=== PATIENT | female | born 1950 | race Caucasian/White ===

== ENCOUNTER 2019-11-01 12:44 | Observation (INO) ==
--- NOTE | 2019-11-01 13:27 | Emergency Department Note ---
Abdominal Pain HPI - General Chief Complaint: Abdominal Pain Stated Complaint: abdominal pain after colonoscopy Time Seen by Provider: 11/01/19 12:52 Source: patient Mode of arrival: ambulatory Limitations: no limitations - History of Present Illness HPI Narrative: 69-year-old female patient presents emergency department chief complaint of worsening abdominal pain, bloating, nausea. Patient tells she underwent a colonoscopy yesterday by Dr. Bernal. Since that time she has had worsening symptoms as mentioned. She admits to having several colonoscopies in the past but "nothing is made me feel like this". She is passed minimal flatus. She has not had a bowel movement in last 24 hours. She denies vomiting. She denies systemic fever, sweats, chills. She denies shortness of breath. She denies retrosternal chest pain or palpitations. She describes the pain as a sharp, cramping pain greatest at the right lower quadrant. She denies dysuria or hematuria. However, it is "a little hard to urinate". She denies focal weakness. Patient past my history is consistent for the following: Hypertension, dyslipidemia, and iron deficiency anemia. - Related Data Home Medications Medication Instructions Recorded Confirmed Atorvastatin [Lipitor] 20 mg PO HS 10/31/19 10/31/19 Cyanocobalamin (Vitamin B-12) 1,000 mcg PO DAILY 10/31/19 10/31/19 [Vitamin B-12] Losartan [Cozaar] 50 mg PO ONCE 10/31/19 10/31/19 Allergies Allergy/AdvReac Type Severity Reaction Status Date / Time No Known Drug Allergies Allergy Verified 11/01/19 12:44 Review of Systems All systems ED: reviewed and negative except as stated. Abdominal Pain PMH - Social History Smoking status: Former smoker Physical Exam Limitations: no limitations General appearance: alert, anxious, grimacing, in distress, other (Well-develope d, well-nourished, obese 69-year-old female patient laying supine on the emergency room gurney in obvious discomfort. She is cradling her abdomen during the interview.) Head: atraumatic, normocephalic Eye: Present: normal appearance, PERRL, EOMI. Absent: scleral icterus, conjunctival injection ENT: Present: normal oropharynx, mucous membranes moist Neck: Present: trachea midline. Absent: lymphadenopathy, thyromegaly Chest: Present: symmetric chest wall rise Respiratory: Present: normal lung sounds bilaterally. Absent: respiratory distress, rales/crackles, wheezes, stridor, accessory muscle use, prolonged expiratory phase Cardiovascular: Present: regular rate, normal rhythm. Absent: systolic murmur, diastolic murmur Abdominal: Present: distention, tenderness, guarding (During right lower quadrant palpation), rigidity, diminished bowel sounds. Absent: soft, rebound, organomegaly, ascites, mass Abdominal tenderness: Present: diffuse, severe Extremities: Present: normal inspection, full ROM Back: Present: normal inspection, full ROM Neurological: Present: alert, oriented X3 Psychiatric: Present: normal affect, anxious Skin: Present: warm, dry, normal color Course Course Narrative: Patient was brought into emergency department and a history and physical exam was performed. Two-view abdominal x-ray series was obtained and reviewed. Laboratory studies were drawn. Afterward, saline lock was established patient was given Dilaudid 0.5 mg IVP. Normal saline was started 1000 L bolus. Upon reevaluation patient had improved slightly with the Dilaudid treatment. However, within 30 minutes or abdominal pain worsened. A review of her laboratory studies show the following: See WBC 14.1, RBC 5.3, hemoglobin 14.3, hematocrit 43.5, platelets 225. CMP glucose 111, all others normal limits. Abdominal x-ray showing normal abdomen. After reviewing the data I discussed these findings with patient. During that time she is complaining of worsening abdominal pain and distention. Due to her worsening symptoms and elevated leukocytes a abdominal/pelvic CT scan with contrast was ordered and reviewed. CT scan with contrast of the abdomen/pelvis showing simple appendicitis. Radiologist does mention that the appendix is located in the lateral pericecal region. There was mention of sigmoid diverticulosis but no diverticulitis. After reviewing the additional data I reached out to our general surgeon (Dr. Parra) and discussed the case with him. With her developing appendicitis it was thought best that she be admitted to the hospital under the surgical service and Dr. Parra will follow her in the morning. Dr. Parra did request that I place some holding orders. Patient has remained stable throughout her entire time the emergency department and is going to be admitted under observation to our surgical service under the care of Dr. Parra. After the holding orders all further treatment decisions, modalities, and ultimate patient disposition will be carried out by Dr. Parra. Vital Signs Temperature 97.5 F 11/01/19 12:44 Pulse Rate 86 11/01/19 12:44 Respiratory Rate 20 11/01/19 12:44 Blood Pressure 137/73 11/01/19 12:44 Pulse Oximetry (%) 99 11/01/19 12:44 Temperature 97.5 F 11/01/19 12:44 Pulse Rate 73 11/01/19 16:49 Respiratory Rate 16 11/01/19 16:49 Blood Pressure 130/60 11/01/19 16:49 Pulse Oximetry (%) 95 11/01/19 16:49 Abdominal Pain - Lab Data Lab results reviewed: Yes I reviewed the patient's lab results. Result diagrams: 11/01/19 13:10 11/01/19 13:10 Lab Results 11/01/19 11/01/19 Range/Units 13:10 13:10 WBC 14.1 H (4.50-11.00) K/mcL RBC 5.30 (3.59-5.38) M/mcL Hgb 14.3 (11.2-15.7) g/dL Hct 43.5 (34.1-44.9) % MCV 82.1 (80.0-100.0) fL MCH 27.0 (26.0-34.0) pg MCHC 32.9 (31.0-36.0) g/dL RDW TNP Plt Count 225 (140-440) K/mcL MPV 8.8 (7.4-10.4) fL Gran % 81.7 H (38.0-78.0) % Lymph % (Auto) 11.1 L (15.5-49.0) % Nash % (Auto) 6.6 (1.0-12.0) % Eos % (Auto) 0.1 (0.0-7.0) % Baso % (Auto) 0.5 (0.0-2.0) % Gran # 11.47 H (1.80-8.00) K/mcL Lymph # (Auto) 1.56 (1.50-4.80) K/mcL Nash # (Auto) 0.93 H (0.10-0.90) K/mcL Eos # (Auto) 0.02 (0.00-0.70) K/mcL Baso # (Auto) 0.07 (0.00-0.30) K/mcL Sodium 133 (133-145) mmol/L Potassium 4.1 (3.3-5.1) mmol/L Chloride 96 (96-108) mmol/L Carbon Dioxide 24 (22-30) mmol/L Anion Gap 13.0 (8-16) BUN 8 (8-23) mg/dl Creatinine 1.0 (0.6-1.1) mg/dl GFR Calculation 57 Glucose 111 H (70-105) mg/dL Calcium 10.2 (8.6-10.4) mg/dl Total Bilirubin 0.5 (0.0-1.0) mg/dL AST 15 (0-37) U/l ALT 17 (0-40) U/l Alkaline Phosphatase 74 (39-117) U/L Total Protein 7.4 (5.9-8.4) gm/dL Albumin 4.6 (3.2-5.2) gm/dL Globulin 2.8 (2.2-3.7) gm/dL Albumin/Globulin Ratio 1.6 (1.0-2.3) - Radiology Data Radiology results reviewed: Yes I reviewed the patient's radiology results. Ordering Physician: Erick Jacques PA-C Date of Service: 11/01/19 Procedure(s): XR abdomen 2V Accession Number(s): [id number] CLINICAL INFORMATION: 69 y/o F. lower Abd pain, nausea today. COMPARISON: None. FINDINGS: The stool gas pattern is unremarkable. There is no free air, soft tissue mass, organomegaly or pathologic calcification. IMPRESSION: Normal abdomen Ordering Physician: Erick Jacques PA-C Date of Service: 11/01/19 Procedure(s): CT abdomen pelvis w con Accession Number(s): [id number] CLINICAL INFORMATION: Abdominal pain following colonoscopy. Elevated white blood cell count COMPARISON: None. TECHNIQUE: Following enteric contrast, 80 cc of Isovue-370 were injected intravenously, and 60 seconds later, 0.625 mm helical slices were obtained from the mid heart through the subtrochanteric regions. Following reconstruction, 2.5 mm sagittal, coronal and axial reformatted images were processed and reviewed at bone, lung and soft tissue windows. Five minutes later, 0.625 mm helical slices were obtained from the mid heart through the kidneys and viewed at soft tissue windows.The exam was performed using radiation dose optimization techniques including, but not limited to, automated exposure control, adjustment of the mA and/or kV according to patient size and use of iterative reconstruction technique. FINDINGS: Lung bases show no abnormality. There are no effusions. The visualized heart is borderline enlarged with moderately heavy calcification in the mitral annulus. Abdominal images show minimal fatty change of the liver, but no focal hepatic lesion. The gallbladder and bile ducts are normal: CBD is 5 mm. The pancreas, both kidneys, adrenal glands, spleen and aorta including aortic branches are normal in size configuration and attenuation without focal lesion. There is no free air, free fluid or adenopathy Pelvic images show urinary bladder to be unremarkable. Anteflex normal-appearing postmenopausal uterus measures 6 x 3 cm. The region of the ovaries are normal. Few sigmoid diverticula appreciated, but no evidence of diverticulitis. The remaining colon, small bowel and stomach are normal. The appendix is located in the lateral pericecal region and shows mild wall thickening and enhancement. There is also inflammation in the periappendiceal fat. No appendicolith. Findings are compatible with simple appendicitis. Bone windows show chronic bilateral L5-S1 spondylolysis with grade 1 spondylolisthesis resulting in severe bilateral IV foraminal narrowing. There is impingement of the exiting L5 nerve roots. IMPRESSION: 1. Simple appendicitis. The appendix is located in the lateral pericecal region. 2. Sigmoid diverticulosis - no evidence of diverticulitis. 3. Bilateral chronic L5-S1 spondylolysis with grade 1 spondylolisthesis and broad disc protrusion resulting in severe IV foraminal narrowing impinging the exiting L5 nerve roots. Interpreted and Authenticated by: Sloan Chang 11/01/19 Disposition Pt seen by UNCLAIMED PROPERTY MANAGER/PA only: Yes Clinical Impression: Acute appendicitis Qualifiers: Acute appendicitis type: with localized peritonitis Appendicitis gangrene presence: without gangrene Appendicitis perforation presence: without perforation Appendicitis abscess presence: without abscess Qualified Code(s): K35.30 - Acute appendicitis with localized peritonitis, without perforation or gangrene Disposition: Xfer As Outpt/Obs ([facility]) Condition: Good Additional Instructions: Patient is going to be admitted to observation our facility under the care of the surgical service (Dr. Parra). I will be placing holding orders and then all further treatment decisions, modalities, and ultimate patient disposition will be carried out by Dr. Parra. Referrals: Gabriella Pichardo MD [Primary Care Provider] - Andrea Parra MD [Physician] - Time of Disposition: 19:09
[2019-11-01] MEDS ORDERED: 0.9 % SODIUM CHLORIDE 1,000 ML IV ONE (13:30)
[2019-11-01] MEDS: HYDROmorphone 2 MG/ML VIAL IV PRN ×4 (13:45→21:12)
[2019-11-01 14:15] LABS: ALT/SGPT 17 U/l (0-40); AST/SGOT 15 U/l (0-37); Albumin 4.6 gm/dL (3.2-5.2); Albumin/Globulin Ratio 1.6 (1.0-2.3); Alkaline Phosphatase 74 U/L (39-117); Bilirubin,Total 0.5 mg/dL (0.0-1.0); Blood Urea Nitrogen 8 mg/dl (8-23); Calcium 10.2 mg/dl (8.6-10.4); Carbon Dioxide 24 mmol/L (22-30); Chloride 96 mmol/L (96-108); Globulin 2.8 gm/dL (2.2-3.7); Glomerular Filtration Rate 57; Glucose 111 mg/dL (70-105)
[2019-11-01 14:30] LABS: Basophils # (Auto) 0.07 K/mcL (0.00-0.30); Basophils % (Auto) 0.5 % (0.0-2.0); Eosinophils # (Auto) 0.02 K/mcL (0.00-0.70); Eosinophils % (Auto) 0.1 % (0.0-7.0); Granulocytes % (Auto) 81.7 % (38.0-78.0); Hematocrit 43.5 % (34.1-44.9); Hemoglobin 14.3 g/dL (11.2-15.7); Lymphocytes # (Auto) 1.56 K/mcL (1.50-4.80); Lymphocytes % (Auto) 11.1 % (15.5-49.0); Mean Cell Volume 82.1 fL (80.0-100.0); Mean Corpuscular HGB Conc 32.9 g/dL (31.0-36.0); Mean Platelet Volume 8.8 fL (7.4-10.4); Monocytes # (Auto) 0.93 K/mcL (0.10-0.90); Monocytes % (Auto) 6.6 % (1.0-12.0); Platelet Count 225 K/mcL (140-440); WBC 14.1 K/mcL (4.50-11.00)
[2019-11-01] MEDS ORDERED: ONDANSETRON 4 MG/2 ML VIAL IV ONE (16:02)
--- NOTE | 2019-11-01 17:56 | Cat Scan Report ---
CLINICAL INFORMATION: Abdominal pain following colonoscopy. Elevated white blood cell count COMPARISON: None. TECHNIQUE: Following enteric contrast, 80 cc of Isovue-370 were injected intravenously, and 60 seconds later, 0.625 mm helical slices were obtained from the mid heart through the subtrochanteric regions. Following reconstruction, 2.5 mm sagittal, coronal and axial reformatted images were processed and reviewed at bone, lung and soft tissue windows. Five minutes later, 0.625 mm helical slices were obtained from the mid heart through the kidneys and viewed at soft tissue windows.The exam was performed using radiation dose optimization techniques including, but not limited to, automated exposure control, adjustment of the mA and/or kV according to patient size and use of iterative reconstruction technique. FINDINGS: Lung bases show no abnormality. There are no effusions. The visualized heart is borderline enlarged with moderately heavy calcification in the mitral annulus. Abdominal images show minimal fatty change of the liver, but no focal hepatic lesion. The gallbladder and bile ducts are normal: CBD is 5 mm. The pancreas, both kidneys, adrenal glands, spleen and aorta including aortic branches are normal in size configuration and attenuation without focal lesion. There is no free air, free fluid or adenopathy Pelvic images show urinary bladder to be unremarkable. Anteflex normal-appearing postmenopausal uterus measures 6 x 3 cm. The region of the ovaries are normal. Few sigmoid diverticula appreciated, but no evidence of diverticulitis. The remaining colon, small bowel and stomach are normal. The appendix is located in the lateral pericecal region and shows mild wall thickening and enhancement. There is also inflammation in the periappendiceal fat. No appendicolith. Findings are compatible with simple appendicitis. Bone windows show chronic bilateral L5-S1 spondylolysis with grade 1 spondylolisthesis resulting in severe bilateral IV foraminal narrowing. There is impingement of the exiting L5 nerve roots. IMPRESSION: 1. Simple appendicitis. The appendix is located in the lateral pericecal region. 2. Sigmoid diverticulosis - no evidence of diverticulitis. 3. Bilateral chronic L5-S1 spondylolysis with grade 1 spondylolisthesis and broad disc protrusion resulting in severe IV foraminal narrowing impinging the exiting L5 nerve roots. Interpreted and Authenticated by: Sloan Chang 11/01/19
[2019-11-01] MEDS ORDERED: ACETAMINOPHEN 325 MG TABLET PO PRN (19:09)
[2019-11-01] MEDS: 0.9 % SODIUM CHLORIDE 1,000 ML IV SCH (20:20)
[2019-11-01] MEDS: PIPERACILLIN SODIUM/TAZOBACTAM 3.375 GM in DEXTROSE 5% IN WATER 50 ML IV SCH (20:31)
[2019-11-01] MEDS ORDERED: SENNOSIDES 1 TABLET PO SCH (21:00)
[2019-11-01] MEDS: ONDANSETRON 4 MG/2 ML VIAL IV PRN (21:12)
[2019-11-01] MEDS: DOCUSATE SODIUM 100 MG CAPSULE PO SCH (21:14)
[2019-11-01] MEDS: 0.9 % SODIUM CHLORIDE 10 ML SYRINGE IV SCH (21:34)
[2019-11-01 22:03] LABS: Appearance,Urine CLEAR; Bacteria,Urine 0 /hpf (0); Bilirubin,Urine NEG (NEG); Color,Urine STRAW; Culture Indicated,Urine YES; Glucose,Urine (UA) NEGATIVE (NEG); Ketones,Urine NEG (NEG); Leukocyte Esterase,Urine 75 /uL (NEG); Nitrate,Urine NEG (NEG); Protein,Urine NEG (NEG); Urine Blood NEG mg/dL (<0.03); Urine RBC 0 /hpf (0-1); Urine Squamous Epithelial Cell < 1 /hpf (0-4); Urine WBC 22 /hpf (0-4); Urobilinogen,Urine NEG (NEG)
[2019-11-02] MEDS: HYDROmorphone 2 MG/ML VIAL IV PRN ×4 (01:26→08:53)
[2019-11-02] MEDS: PIPERACILLIN SODIUM/TAZOBACTAM 3.375 GM in DEXTROSE 5% IN WATER 50 ML IV SCH ×5 (01:54→23:59)
[2019-11-02] MEDS: 0.9 % SODIUM CHLORIDE 1,000 ML IV SCH ×5 (03:13→22:15)
[2019-11-02] MEDS: 0.9 % SODIUM CHLORIDE 10 ML SYRINGE IV SCH ×3 (05:03→21:55)
--- NOTE | 2019-11-02 07:14 | Emergency Department Note ---
ED Note Addendum Note Addendum: I reviewed this case with Erick Jacques PA-C. Agree with his evaluation management documentation. Agree with decision to admit to Dr. Parra
[2019-11-02 07:37] LABS: Basophils # (Auto) 0.04 K/mcL (0.00-0.30); Basophils % (Auto) 0.5 % (0.0-2.0); Eosinophils % (Auto) 1.2 % (0.0-7.0); Hematocrit 38.4 % (34.1-44.9); Hemoglobin 12.4 g/dL (11.2-15.7); Lymphocytes # (Auto) 1.88 K/mcL (1.50-4.80); Lymphocytes % (Auto) 21.7 % (15.5-49.0); Mean Cell Volume 85.5 fL (80.0-100.0); Mean Corpuscular HGB Conc 32.3 g/dL (31.0-36.0); Mean Platelet Volume 9.1 fL (7.4-10.4); Monocytes # (Auto) 0.83 K/mcL (0.10-0.90); Monocytes % (Auto) 9.6 % (1.0-12.0); Platelet Count 194 K/mcL (140-440); RBC 4.49 M/mcL (3.59-5.38); WBC 8.7 K/mcL (4.50-11.00)
[2019-11-02] MEDS: ONDANSETRON 4 MG/2 ML VIAL IV PRN (09:05)
[2019-11-02 09:47] LABS: POC INR 1.1 (0.9-1.2)
--- NOTE | 2019-11-02 09:53 | General Surg History&Physical ---
History of Present Illness Patient information: Note initiated : 11/02/19 at 9:51 am Service Date, if different from initiated Date: [] Patient: Hoda Shukla 69 y/o F admitted on 11/01/19 for abdominal pain after colonoscopy. Chief Complaint: [] HPI: Ms. Shukla is a 69 year old F admitted with acute appendicitis. 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 She developed right lower quadrant pain shortly after completion of the procedure. The pain continued density and increased in severity. She did not have nausea vomiting. Because of continued severe pain. She was seen in the emergency room where was noted that her white blood count was 14,000. CT of the abdomen revealed evidence of inflammation or dilation of the appendix with periappendiceal tissue edema compatible with acute appendicitis. Patient was admitted last evening and started on antibiotics. Her white count has returned to normal, but she still has significant right lower quadrant pain. She is counseled for laparoscopic appendectomy which will be performed later this morning. Review of Systems All systems PM: reviewed and no additional remarkable complaints except as stated (mild diffuse joint pain from arthritis. Otherwise no complaints) Past History Past medical history: hypertension. Chronic deficiency anemia requiring iron infusions Past surgical history: No operative procedures Past family history: Father age 60 due to myocardial infarction. Mother age 94. She had breast cancer Past social history: Former cigarette smoker, stopped in 2005. Drinks vodka at least twice weekly. No history of drug use Medications and Allergies Home Medications Medication Instructions Recorded Confirmed Type Atorvastatin [Lipitor] 20 mg PO HS 10/31/19 11/01/19 History Cyanocobalamin (Vitamin B-12) 1,000 mcg PO DAILY 10/31/19 11/01/19 History [Vitamin B-12] Losartan [Cozaar] 50 mg PO ONCE 10/31/19 11/01/19 History Allergies Allergy/AdvReac Type Severity Reaction Status Date / Time No Known Drug Allergies Allergy Verified 11/01/19 12:44 Exam Temp Pulse Resp BP Pulse Ox 98.5 F 65 18 97/61 90 11/02/19 07:51 11/02/19 07:51 11/02/19 07:51 11/02/19 07:51 11/02/19 07:51 - General physical appearance well developed, well nourished, no distress - Eyes PERRL, normal ocular movement - ENT normal pinna, normal nares, normal mucosa, no hearing loss, no congestion - Head Head exam IM: Present: atraumatic, normal inspection, normocephalic - Neck no masses, no bruits, trachea midline, no lymphadenopathy, no venous distension - Cardiovascular Cardiovascular exam IM: Present: normal rate and rhythm, RRR, +S1, +S2. Absent: JVD, tachycardia - Respiratory normal expansion, normal respiratory effort, clear to auscultation - Abdomen Abdomen: Present: soft, tender (tenderness in right lower quadrant and hypogastrium with guarding; good active bowel sounds; no masses), bowel sounds Hernia: Present: none - Genitourinary Present: normal external genitalia - Integumentary Present: no rash, no growths, no abnormal pigmentation - Neurologic Present: normal coordination, normal sensation - Musculoskeletal Present: normal gait, normal posture - Psychiatric Present: oriented to time, oriented to person, oriented to place, speech is normal, memory intact Assessment and Plan (1) Acute appendicitis Patient was admitted late last evening and started on antibiotic therapy. Her white blood count has reduced to 8.9. He continues to be symptomatic is counseled for laparoscopic appendectomy. Status: Acute Qualifiers: Acute appendicitis type: with localized peritonitis Appendicitis gangrene presence: without gangrene Appendicitis perforation presence: without perforation Appendicitis abscess presence: without abscess Qualified Code(s): K35.30 - Acute appendicitis with localized peritonitis, without perforation or gangrene (2) Chronic arthritis Status: Acute
[2019-11-02] MEDS: DOCUSATE SODIUM 100 MG CAPSULE PO SCH ×2 (09:56→20:53)
[2019-11-02] MEDS ORDERED: ROCURONIUM 10 MG/ML ML IV ONE (12:10)
[2019-11-02] MEDS ORDERED: fentaNYL 100 MCG/2 ML VIAL IV ONE (12:10)
[2019-11-02] MEDS ORDERED: DEXAMETHASONE 10 MG/ML VIAL IV ONE (12:10)
[2019-11-02] MEDS ORDERED: LIDOCAINE HCL/PF 100 MG/5 ML SYRINGE IV ONE (12:10)
[2019-11-02] MEDS ORDERED: GLYCOPYRROLATE 0.2 MG/ML VIAL IV ONE (12:10)
[2019-11-02] MEDS ORDERED: SUGAMMADEX SODIUM 200 MG/2 ML VIAL IV ONE (12:10)
[2019-11-02] MEDS ORDERED: ONDANSETRON 4 MG/2 ML VIAL IV ONE (12:10)
[2019-11-02] MEDS ORDERED: PHENYLEPHRINE 10 MG/ML VIAL IV ONE (12:10)
[2019-11-02] MEDS ORDERED: KETAMINE 100 MG/ML ML IV ONE (12:10)
[2019-11-02] MEDS ORDERED: PROPOFOL 200 MG/20 ML VIAL IV ONE (12:10)
[2019-11-02] MEDS ORDERED: MIDAZOLAM 2 MG/2 ML VIAL IV ONE (12:10)
[2019-11-02] MEDS ORDERED: fentaNYL 100 MCG/2 ML VIAL IV PRN ×2 (12:47→14:33)
[2019-11-02] MEDS ORDERED: ONDANSETRON 4 MG/2 ML VIAL IV PRN ×3 (12:47→14:33)
[2019-11-02] MEDS ORDERED: ACETAMINOPHEN 1,000 MG/100 ML BOTTLE IV ONE (12:47)
[2019-11-02] MEDS ORDERED: MEPERIDINE 25 MG/ML SYRINGE IV PRN ×2 (12:47→14:33)
[2019-11-02] MEDS ORDERED: IPRATROPIUM/ALBUTEROL 3 ML AMPUL.NEB NEB PRN ×2 (12:47→14:33)
[2019-11-02] MEDS ORDERED: HYDROmorphone 2 MG/ML VIAL IV PRN ×3 (12:47→14:33)
[2019-11-02] MEDS ORDERED: KETOROLAC 15 MG/ML VIAL IV PRN ×2 (12:47→14:33)
[2019-11-02] MEDS ORDERED: LACTATED RINGERS 1,000 ML IV SCH ×2 (13:00→14:33)
--- NOTE | 2019-11-02 13:12 | Brief Operative Note ---
Date of procedure: 11/02/19 Pre-op diagnosis: acute appendicitis Post-op diagnosis: other (acute appendicitis) Procedure: laparoscopic appendectomy Grafts/Implants: No Anesthesia: GETA Findings: acute suppurative appendicitis Complications: none Surgeon: Andrea Parra Estimated blood loss (cc): 15 Specimens Removed/Pathology: other (appendix) Condition: stable Disposition: PACU
--- NOTE | 2019-11-02 13:21 | XRay Report ---
CLINICAL INFORMATION: Preop evaluation COMPARISON: None. TECHNIQUE: PA and Lateral views FINDINGS: The heart size, mediastinum and pulmonary vessels are unremarkable. The lungs are clear. There are no effusions. The bones and soft tissues are within normal limits. IMPRESSION: Normal chest. Interpreted and Authenticated by: Sloan Chang 11/02/19
[2019-11-02] MEDS ORDERED: ACETAMINOPHEN 325 MG TABLET PO PRN (14:33)
[2019-11-02] MEDS ORDERED: SENNOSIDES 1 TABLET PO SCH (21:00)
[2019-11-03] MEDS: PIPERACILLIN SODIUM/TAZOBACTAM 3.375 GM in DEXTROSE 5% IN WATER 50 ML IV SCH (05:59)
[2019-11-03] MEDS: 0.9 % SODIUM CHLORIDE 10 ML SYRINGE IV SCH (06:00)
[2019-11-03] MEDS: 0.9 % SODIUM CHLORIDE 1,000 ML IV SCH (06:33)
[2019-11-03 06:43] LABS: Basophils # (Auto) 0.01 K/mcL (0.00-0.30); Basophils % (Auto) 0.1 % (0.0-2.0); Eosinophils # (Auto) 0 K/mcL (0.00-0.70); Eosinophils % (Auto) 0 % (0.0-7.0); Granulocytes % (Auto) 80.5 % (38.0-78.0); Hematocrit 37.3 % (34.1-44.9); Hemoglobin 12.2 g/dL (11.2-15.7); Lymphocytes # (Auto) 1.15 K/mcL (1.50-4.80); Lymphocytes % (Auto) 12.4 % (15.5-49.0); Mean Cell Volume 83.8 fL (80.0-100.0); Mean Corpuscular HGB Conc 32.7 g/dL (31.0-36.0); Mean Platelet Volume 9.2 fL (7.4-10.4); Monocytes # (Auto) 0.65 K/mcL (0.10-0.90); Platelet Count 203 K/mcL (140-440); RBC 4.45 M/mcL (3.59-5.38); WBC 9.3 K/mcL (4.50-11.00)
[2019-11-03 06:49] LABS: ALT/SGPT 13 U/l (0-40); AST/SGOT 14 U/l (0-37); Albumin 3.5 gm/dL (3.2-5.2); Albumin/Globulin Ratio 1.5 (1.0-2.3); Alkaline Phosphatase 68 U/L (39-117); Bilirubin,Direct < 0.2 mg/dL (0.0-0.3); Bilirubin,Total 0.2 mg/dL (0.0-1.0); Blood Urea Nitrogen 7 mg/dl (8-23); Calcium 9.3 mg/dl (8.6-10.4); Carbon Dioxide 23 mmol/L (22-30); Chloride 106 mmol/L (96-108); Globulin 2.4 gm/dL (2.2-3.7); Glomerular Filtration Rate 65; Glucose 119 mg/dL (70-105); Lactate Dehydrogenase 131 U/L (94-250); Phosphorous 2.8 mg/dL (2.7-4.5); Triglycerides 96 mg/dl (<150); Uric Acid 3.1 mg/dL (2.5-8.0)
[2019-11-03] MEDS: DOCUSATE SODIUM 100 MG CAPSULE PO SCH (08:29)
--- NOTE | 2019-11-03 10:17 | Discharge Summary ---
Providers - Providers Patient information: Note initiated : 11/03/19 at 10:15 am Service Date, if different from initiated Date: [] Patient: Hoda Shukla 69 y/o F admitted on 11/01/19 for abdominal pain after colonoscopy. Chief Complaint: [] Date of admission: 11/01/19 Discharge date: 11/03/19 Attending physician: Andrea Parra Hospitalization Hospital Course: 69-year-old female admitted on October 24 with complaint of diffuse abdominal pain. After the pain increased in intensity and she developed nausea. She was seen in the emergency room where she was noted to have right lower quadrant tenderness. CT examination was compatible with acute appendicitis. She underwent laparoscopic appendectomy on yesterday. She has done very well and is now essentially asymptomatic. She has not required analgesics. She has tolerated diet without difficulty. Patient is stable for discharge home. Discharge diagnosis: acute appendicitis Secondary discharge diagnosis: Hypertension. Iron deficiency anemia Reason for admission: recurrent abdominal pain and nausea Procedures: Laparoscopic appendectomy Pertinent studies/significant findings: CT of abdomen and pelvis with contrast Complications: None Exam Temp Pulse Resp BP Pulse Ox 98.2 F 54 L 16 139/60 96 11/03/19 06:33 11/03/19 06:33 11/03/19 06:33 11/03/19 06:33 11/03/19 06:33 - General physical appearance well developed, well nourished, no distress - Eyes PERRL, normal ocular movement - ENT normal pinna, normal nares, normal mucosa, no hearing loss, no congestion - Head Head exam IM: Present: atraumatic, normocephalic - Neck no masses, no bruits, trachea midline, no lymphadenopathy, no venous distension - Cardiovascular Cardiovascular exam IM: Present: normal rate and rhythm - Respiratory normal expansion, normal respiratory effort, clear to percussion, clear to auscultation - Abdomen Abdomen: Present: soft, tender (mild tenderness around port sites; active bowel sounds; mild distention), bowel sounds Hernia: Present: none - Genitourinary Present: normal external genitalia - Integumentary Present: no rash, no growths, no abnormal pigmentation - Neurologic Present: normal coordination, normal sensation - Musculoskeletal Present: normal gait, normal posture - Psychiatric Present: oriented to time, oriented to person, oriented to place, speech is normal, memory intact Discharge Plan - Patient/Caregiver Discharge Instructions Activity: increase activity as tolerated Diet: Regular Diet Additional Instructions: Patient will take Tylenol for discomfort. She will contact the office tomorrow to make an appointment for staple removal in 2 weeks. She may advance her diet as tolerated - Follow up Plan Follow up with: Gabriella Pichardo MD [Primary Care Provider] - Andrea Parra MD [Physician] - Disposition: Home, Self-Care Prognosis: Good Rehab Potential: Good I certify that the patient requires SNF services.: No Overall status at discharge: patient is progressing back to baseline Pending Studies Resuscitation Status Full Code Diet Full Liquid Diet Start Sat Oct 1434 Acetaminophen (Tylenol) 650 mg PO Q6HP PRN; Protocol PRN Reason: Per Pain Protocol/Fever > 101 Last Admin: 11/02/19 22:15 Dose: 650 mg Documented by: LETY Docusate Sodium (Colace) 100 mg PO BID [facility] Last Admin: 11/03/19 08:29 Dose: Not Given Documented by: Admin: 11/02/19 20:53 Dose: 100 mg Documented by: LETY Sodium Chloride (Sodium Chloride 0.9%) 1,000 mls @ 125 mls/hr IV .Q8H [facility] Last Admin: 11/03/19 06:33 Dose: Not Given Documented by: Infusion: 11/03/19 06:15 Dose: 0 mls/hr Documented by: Admin: 11/02/19 22:15 Dose: 125 mls/hr Documented by: Infusion: 11/02/19 22:15 Dose: 125 mls/hr Documented by: Admin: 11/02/19 14:42 Dose: 125 mls/hr Documented by: JUAN Piperacillin Sod/Tazobactam (Sod 3.375 gm/ Dextrose) 50 mls @ 100 mls/hr IV Q6H [facility]; Protocol Last Infusion: 11/03/19 06:29 Dose: 0 mls/hr Documented by: Admin: 11/03/19 05:59 Dose: 100 mls/hr Documented by: Infusion: 11/03/19 00:29 Dose: 100 mls/hr Documented by: Admin: 02/29/20 23:59 Dose: 100 mls/hr Documented by: Infusion: 11/02/19 16:54 Dose: 100 mls/hr Documented by: [email or web address] Admin: 11/02/19 16:24 Dose: 100 mls/hr Documented by: [email or web address] Senna (Senokot) 2 tab PO HS [facility] Last Admin: 11/02/19 20:53 Dose: 2 tab Documented by: LETY Sodium Chloride (Saline Flush) 10 ml IV Q8 [facility] Last Admin: 11/03/19 06:00 Dose: Not Given Documented by: Admin: 11/02/19 21:55 Dose: Not Given Documented by: LETY Shift Summary 11/03/19 05:29 Shift Summary by Em Miranda Pt is A&Ox4. Up ad ping in room. BP running a little high this AM (160/83) and HR has been running in the 50s while resting/sleep. Other VSS on RA. IV to right hand w/NS @ 125 ml/hr. Voids large amounts per BR. Receiving scheduled Zosyn. Pt got PRN PO Tylenol x1 for headache. 3 lap sites to abdomen CDI - 2 w/gauze & Tegaderm, 1 w/aditya & Tegaderm. Will update with verbal report. Initialized on 11/03/19 05:29 - END OF NOTE
--- NOTE | 2019-11-04 10:10 | Operative Note ---
DATE OF OPERATION: 11/02/2019 PREOPERATIVE DIAGNOSIS: Acute appendicitis. POSTOPERATIVE DIAGNOSIS: Acute appendicitis. PROCEDURE: Laparoscopic appendectomy. SURGEON: Andrea Parra M.D. FINDINGS: Acute suppurative appendicitis. DESCRIPTION OF PROCEDURE: Under general anesthesia, the patient's abdomen was prepped and draped in a sterile field. A timeout procedure was carried out as per protocol. Supraumbilical incision was made. Veress needle was inserted. Abdomen was insufflated with 2 liters of CO2. A 12 mm port was placed. Laparoscope was placed. Under videoscopic guidance, a 5 mm port was placed in the suprapubic midline and a 12 mm port in the left lower quadrant. The patient was placed in reverse Trendelenburg position and rotated to the left. The cecum was mobilized, and the appendix was found at the base of the cecum. It was bluntly dissected. A window was made at the base of the appendix and the appendiceal base was transected using Endo MARTA stapler. The mesoappendix was transected using Endo MARTA stapler. The appendix was placed in an Endopouch and retrieved. Irrigation was carried out. There was minimal bleeding. CO2 was allowed to escape from the abdomen, and the ports were removed. The patient tolerated the procedure well. The fascia of the umbilicus was closed with 0 Vicryl. Skin incisions were closed with aditya. The patient was awakened from anesthesia uneventfully, extubated, and transferred to the postanesthetic care unit in stable, satisfactory condition. LCS:dee Job ID: [id number] Doc ID: [id number] Andrea Parra M.D.
--- NOTE | 2019-11-05 11:57 | Surgical Pathology Report ---
HISTOLOGY SPECIMEN MICROSCOPIC DIAGNOSIS APPENDIX, APPENDECTOMY: -- ACUTE APPENDICITIS. (DMT:sln) PROCEDURAL IMPRESSION Appendicitis. GROSS DESCRIPTION Received in formalin designated appendix per requisition, is a armando-levine appendix. It is 4.1 cm in length by up to 0.7 cm in diameter. The serosa is armando-levine. The margin is stapled. This is inked black. Approximately 1.5 cm from the margin there is a dark area of possibly thinned mucosa. This is up to 0.9 cm in length. Sectioning reveals a levine-brown fecalith. The wall is up to 0.3 cm thick. Within the previously mentioned possibly thinner area the wall is up to 0.1 cm thick. [employer] sections are submitted in one cassette. (SCB:adj) Electronically Signed by: Leoncio Siddiqui M.D.
== END 2019-11-03 10:55 | disposition home or self-care (01) ==
LOC: MEDSUR 12:44 → ED 12:44 → MEDSUR 20:00
PROVIDERS: ADMIT Family Medicine Adult Medicine; ATTEND Family Medicine Adult Medicine